=== PATIENT | female | born 1955 | race African-American/Black ===

== ENCOUNTER 2018-05-24 06:19 | Inpatient (IN) | payer MEDICARE, MEDICAID ==
[~2018-05-24] VITALS: Ht 162.6 cm; Wt 63.5 kg
[~2018-05-24 06:19] MED LIST: ALBU6.7H IH; AMLO5TAB88 PO; CLON0.2T PO; HYDR-4009 PO; LACTATED RINGERS 1,000 ML IV SCH; S350 PO
[2018-05-24] MEDS ORDERED: INDOCYANINE GREEN 25 MG VIAL IV ONE (06:38)
[2018-05-24] MEDS ORDERED: SKIN ADHESIVE 0.7 GM EA TOP ONE (06:39)
[2018-05-24] MEDS ORDERED: BUPIVACAINE HCL 0.5% (5MG/ML) 50ML ONE (06:39)
[2018-05-24 07:22] LABS: CLARITY URINE TURBID (CLEAR); COLOR URINE AMBER (YELLOW); KETONES URINE TRACE (NEGATIVE); LEUKOCYTE ESTERASE URINE 3+ (NEGATIVE); NITRITE URINE NEGATIVE (NEGATIVE); OCCULT BLOOD URINE 3+ (NEGATIVE); PH URINE 5.5 (4.5-8.0); PROTEIN URINE 1+ (NEGATIVE); SPECIFIC GRAVITY URINE 1.022 (1.005-1.030); UROBILINOGEN URINE 0.2 E.U./dL (0.2-1.0)
[2018-05-24] MEDS ORDERED: MIDAZOLAM HCL 2 MG/2 ML VIAL ONE (08:16)
[2018-05-24] MEDS ORDERED: PROPOFOL 200MG/20ML VIAL IV ONE (08:16)
[2018-05-24] MEDS ORDERED: FENTANYL CITRATE/PF 50MCG/ML 5ML VIAL ONE (08:16)
[2018-05-24] MEDS ORDERED: ROCURONIUM BROMIDE 10MG/ML VIAL 5ML IV ONE (08:16)
[2018-05-24] MEDS ORDERED: METRONIDAZOLE 500 MG PREMIX 100 ML IV ONE (08:23)
[2018-05-24] MEDS ORDERED: LEVOFLOXACIN 500MG PREMIX 100 ML IV ONE (08:23)
[2018-05-24] MEDS ORDERED: SUCCINYLCHOLINE CHLORIDE 200MG/10ML IV ONE (08:48)
[2018-05-24] MEDS ORDERED: KETOROLAC 30MG/ML VIAL ONE ×2 (08:48→11:17)
[2018-05-24] MEDS ORDERED: BUPIVACAINE HCL/PF 0.5% (5MG/ML) 10ML ONE (08:57)
[2018-05-24] MEDS ORDERED: PHENYLEPHRINE HCL 10 MG/ML 1ML (IV VIAL) IV ONE (09:53)
[2018-05-24] MEDS ORDERED: MEPERIDINE HCL/PF 25MG/ML CPJ IV PRN (11:15)
[2018-05-24] MEDS ORDERED: LEVOFLOXACIN 500MG PREMIX 100 ML IV SCH (11:15)
[2018-05-24] MEDS ORDERED: ONDANSETRON HCL 4MG/2ML INJ IV PRN ×2 (11:15)
[2018-05-24] MEDS ORDERED: HYDROMORPHONE HCL/PF 2MG/ML CPJ IV PRN (11:15)
[2018-05-24] MEDS ORDERED: ACETAMINOPHEN 650MG SUPP PR PRN (11:15)
[2018-05-24] MEDS ORDERED: MORPHINE SULFATE 4 MG/ML CPJ (NOT FOR IM USE) IV PRN (11:15)
[2018-05-24] MEDS ORDERED: FENTANYL CITRATE/PF 50MCG/ML 2ML VIAL IV PRN (11:15)
[2018-05-24] MEDS ORDERED: METOCLOPRAMIDE HCL 10MG/2ML VIAL ONE (11:17)
[2018-05-24] MEDS: MORPHINE SULFATE 4 MG/ML CPJ (NOT FOR IM USE) IV PRN (15:13)
[2018-05-24 16:00] VITALS: BP 88/60
[2018-05-24 16:38] VITALS: BP 113/60
[2018-05-24] MEDS: DEXT 5%/0.45% NACL KCL 20MEQ/L 1,000 ML IV SCH (17:03)
[2018-05-24] MEDS: METRONIDAZOLE 500 MG PREMIX 100 ML IV SCH (17:04)
[2018-05-24 20:00] VITALS: BP 96/56
[2018-05-24 20:13] LABS: HEMATOCRIT 26.9 % (36.0-48.0); HEMOGLOBIN 8.6 g/dL (12.0-16.0)
[2018-05-24] MEDS ORDERED: FAMOTIDINE 20MG/2ML VIAL IV NR (21:00)
[2018-05-24 23:32] LABS: HEMATOCRIT 25.4 % (36.0-48.0); HEMOGLOBIN 8.1 g/dL (12.0-16.0)
[2018-05-25] VITALS: BP 109/67
[2018-05-25] MEDS: MORPHINE SULFATE 4 MG/ML CPJ (NOT FOR IM USE) IV PRN ×4 (00:17→18:18)
[2018-05-25] MEDS: METRONIDAZOLE 500 MG PREMIX 100 ML IV SCH ×2 (01:14→09:29)
[2018-05-25] MEDS: DEXT 5%/0.45% NACL KCL 20MEQ/L 1,000 ML IV SCH ×2 (01:14→12:54)
[2018-05-25 04:00] VITALS: BP 103/67
[2018-05-25 07:16] LABS: CHLORIDE 110 mEq/L (98-107)
[2018-05-25] MEDS ORDERED: SODIUM CHLORIDE 0.9% 1000ML BAG (SEPSIS BOLUS) IV ONE (10:30)
[2018-05-25] MEDS ORDERED: SODIUM CHLORIDE 0.9% 250 ML IV ONE (10:45)
[2018-05-25] MEDS: FAMOTIDINE 20MG/2ML VIAL IV SCH ×2 (10:50→20:53)
[2018-05-25 12:00] VITALS: BP 116/70
[2018-05-25] MEDS: ACETAMINOPHEN 650MG/20.3ML UDC PO PRN (12:30)
[2018-05-25 16:00] VITALS: BP 114/69
[2018-05-25 20:00] VITALS: BP 102/61
[2018-05-26] VITALS: BP 136/77
[2018-05-26] MEDS: DEXT 5%/0.45% NACL KCL 20MEQ/L 1,000 ML IV SCH ×3 (01:30→17:14)
[2018-05-26] MEDS: MORPHINE SULFATE 4 MG/ML CPJ (NOT FOR IM USE) IV PRN ×3 (01:58→17:08)
[2018-05-26] MEDS: ACETAMINOPHEN 650MG/20.3ML UDC PO PRN (03:49)
[2018-05-26 04:00] VITALS: BP 116/69
[2018-05-26] MEDS: FAMOTIDINE 20MG/2ML VIAL IV SCH ×2 (09:43→21:21)
[2018-05-26 16:00] VITALS: BP 125/80
[2018-05-26 20:00] VITALS: BP 108/68
[2018-05-27] VITALS: BP 129/69
[2018-05-27 04:00] VITALS: BP 123/77
[2018-05-27] MEDS: DEXT 5%/0.45% NACL KCL 20MEQ/L 1,000 ML IV SCH ×2 (04:00→14:00)
[2018-05-27 08:00] VITALS: BP 114/69
[2018-05-27] MEDS: FAMOTIDINE 20MG/2ML VIAL IV SCH ×2 (09:38→20:56)
[2018-05-27] MEDS: MORPHINE SULFATE 4 MG/ML CPJ (NOT FOR IM USE) IV PRN ×2 (10:18→20:56)
[2018-05-27 12:00] VITALS: BP 117/79
[2018-05-27 16:00] VITALS: BP 122/77
[2018-05-27 20:00] VITALS: BP 121/79
[2018-05-28] VITALS: BP 109/77
[2018-05-28] MEDS: DEXT 5%/0.45% NACL KCL 20MEQ/L 1,000 ML IV SCH ×3 (00:55→21:03)
[2018-05-28 04:00] VITALS: BP 126/79
[2018-05-28 08:00] VITALS: BP 91/61
[2018-05-28] MEDS: FAMOTIDINE 20MG/2ML VIAL IV SCH ×2 (08:26→21:08)
[2018-05-28] MEDS ORDERED: ONDANSETRON HCL 4MG/2ML INJ ONE (09:53)
[2018-05-28] MEDS ORDERED: METOCLOPRAMIDE HCL 10MG/2ML VIAL ONE (09:53)
[2018-05-28 12:00] VITALS: BP 109/66
[2018-05-28 16:00] VITALS: BP 114/78
[2018-05-28 20:00] VITALS: BP 117/80
[2018-05-28] MEDS: MORPHINE SULFATE 4 MG/ML CPJ (NOT FOR IM USE) IV PRN (21:04)
[2018-05-29] VITALS: BP 114/74
[2018-05-29 04:00] VITALS: BP 125/76
[2018-05-29] MEDS: DEXT 5%/0.45% NACL KCL 20MEQ/L 1,000 ML IV SCH (06:30)
[2018-05-29 08:00] VITALS: BP 116/70
[2018-05-29] MEDS: FAMOTIDINE 20MG/2ML VIAL IV SCH (08:18)
[2018-05-29] MEDS ORDERED: IOHEXOL-300 50 ML BOTTLE IV ONE (09:18)
[2018-05-29 12:00] VITALS: BP 124/70
[2018-05-29] MEDS: ACETAMINOPHEN 650MG/20.3ML UDC PO PRN (15:05)
[2018-05-29 15:28] VITALS: BP 124/70
[2018-05-29 16:00] VITALS: BP 128/88
== END 2018-05-29 15:55 | disposition home health service (06) | DRG 333 ==
LOC: OR 06:19 → 6EST 06:20
PROVIDERS: ADMIT Surgery; ATTEND Surgery
PROC: 8E0W4CZ Robotic Assisted Procedure of Trunk Region, Percutaneous Endoscopic Approach (ICD-10-PCS; principal; 2018-05-24)
PROC: 0DTP0ZZ Resection of Rectum, Open Approach (ICD-10-PCS; 2018-05-24)
DX: K57.92 Diverticulitis of intestine, part unspecified, without perforation or abscess without bleeding (principal); N32.1 Vesicointestinal fistula
CPT/HCPCS: 36415; 71045; 74176; 80048; 85014; 85018; 86850; 86900; 88305; 88307; 97116; 97162; C1893; J0330; J1885; J1956; J2250; J2270; J2370; J2405; J2704; J2765; J3010; J3490; J7040; Q9957; Q9967

== ENCOUNTER 2019-04-11 13:57 | Emergency (ER) | payer MEDICARE, MEDICAID ==
[~2019-04-11] VITALS: Ht 162.6 cm; Wt 66.0 kg
[~2019-04-11 13:57] MED LIST changes: -CLON0.2T PO; -LACTATED RINGERS 1,000 ML IV SCH; -S350 PO
[2019-04-11 14:11] VITALS: BP 107/89
[2019-04-11] MEDS ORDERED: IBUPROFEN 600MG TABLET PO ONE (15:30)
== END 2019-04-11 15:49 | disposition home or self-care (01) ==
LOC: ER 14:09
DX: M54.9 Dorsalgia, unspecified (principal); M79.601 Pain in right arm; I10 Essential (primary) hypertension; M19.90 Unspecified osteoarthritis, unspecified site; V49.9XXA Car occupant (driver) (passenger) injured in unspecified traffic accident, initial encounter; Y93.9 Activity, unspecified; Y92.410 Unspecified street and highway as the place of occurrence of the external cause
CPT/HCPCS: 99282

== ENCOUNTER 2019-09-28 06:11 | Emergency (ER) | payer MEDICARE, MEDICAID ==
[~2019-09-28] VITALS: Ht 162.6 cm; Wt 66.0 kg
[~2019-09-28 06:11] MED LIST changes: -ALBU6.7H IH; +ALBU6.7H11 IH
[2019-09-28 06:20] VITALS: BP 117/96
[2019-09-28] MEDS ORDERED: HYDROCODONE/ACETAMINOPHEN 5/325MG TABLET PO ONE (07:00)
== END 2019-09-28 09:13 | disposition home or self-care (01) ==
LOC: ER 06:11
DX: M25.462 Effusion, left knee (principal); I10 Essential (primary) hypertension; M19.90 Unspecified osteoarthritis, unspecified site; J45.909 Unspecified asthma, uncomplicated
CPT/HCPCS: 29505; 73562; 93971; 99284

== ENCOUNTER 2020-01-05 05:23 | Emergency (ER) | payer MEDICARE, MEDICAID ==
[~2020-01-05] VITALS: Ht 162.6 cm; Wt 67.0 kg
[2020-01-05] MEDS ORDERED: ACETAMINOPHEN 500MG TABLET PO ONE (06:30)
[2020-01-05 07:15] LABS: CHLORIDE 111 mEq/L (98-107)
[2020-01-05 07:28] LABS: BASOPHILS % 0.6 % (0.0-2.0); EOSINOPHILS % 1.3 % (0.0-5.0); HEMATOCRIT. 34.8 % (36.0-48.0); HEMOGLOBIN. 11.5 g/dL (12.0-16.0); LYMPHOCYTES % 26.3 % (20.0-50.0); MEAN CORPUSCULAR HEMOGLOBIN 29.1 pg (28.0-32.0); MEAN CORPUSCULAR VOLUME 88.5 fL (81.0-99.0); MEAN PLATELET VOLUME 6.5 fl (7.4-10.4); MONOCYTES % 8.5 % (2.0-8.0); NEUTROPHILS % 63.3 % (40.0-76.0); PLATELET 360 x1000/uL (130-400); RED BLOOD CELL COUNT 3.93 mill/uL (4.2-5.4); RED CELL DISTRIBUTION WIDTH 13.7 % (11.6-14.6)
[2020-01-05 09:39] VITALS: BP 129/87
[2020-01-05] MEDS ORDERED: IOHEXOL-300 100 ML BOTTLE ONE (15:27)
== END 2020-01-05 09:40 | disposition home or self-care (01) ==
LOC: ER 05:23
DX: R10.84 Generalized abdominal pain (principal); I10 Essential (primary) hypertension; Z79.899 Other long term (current) drug therapy
CPT/HCPCS: 36415; 70450; 73564; 74177; 80053; 85025; 93005; 99285; Q9967

== ENCOUNTER 2020-06-13 14:33 | Emergency (ER) | payer MEDICARE, MEDICAID ==
[~2020-06-13] VITALS: Ht 167.6 cm; Wt 60.0 kg
[2020-06-13] MEDS ORDERED: ONDANSETRON HCL 4MG/2ML INJ IV STA (15:37)
[2020-06-13] MEDS ORDERED: MORPHINE SULFATE 4 MG/ML CPJ (NOT FOR IM USE) IV STA (15:37)
[2020-06-13 16:19] LABS: HEMATOCRIT. 37.3 % (36.0-48.0); HEMOGLOBIN. 12.4 g/dL (12.0-16.0); MEAN CORPUSCULAR HEMOGLOBIN 28.7 pg (28.0-32.0); MEAN CORPUSCULAR VOLUME 86.4 fL (81.0-99.0); MEAN PLATELET VOLUME 6.9 fl (7.4-10.4); PLATELET 400 x1000/uL (130-400); RED BLOOD CELL COUNT 4.32 mill/uL (4.2-5.4); RED CELL DISTRIBUTION WIDTH 13.4 % (11.6-14.6)
[2020-06-13 16:25] LABS: CHLORIDE 103 mEq/L (98-107)
[2020-06-13] MEDS ORDERED: SODIUM CHLORIDE 0.9% 1,000 ML IV ONE ×2 (16:30→19:15)
[2020-06-13] MEDS ORDERED: MAGNESIUM CITRATE 300ML SOLUTION PO ONE (17:00)
[2020-06-13] MEDS ORDERED: POTASSIUM CHLORIDE 20MEQ TABLET SR PO ONE (17:00)
[2020-06-13 17:57] LABS: PLATELET ESTIMATE NORMAL
[2020-06-13] MEDS ORDERED: MORPHINE SULFATE 4 MG/ML CPJ (NOT FOR IM USE) IV ONE (18:00)
[2020-06-13] MEDS ORDERED: LIDOCAINE HCL 1% 20ML VIAL (Pyxis) INJ INFIL ONE (19:00)
[2020-06-13] MEDS ORDERED: HYDROMORPHONE HCL/PF 2MG/ML CPJ IV ONE (19:00)
[2020-06-13 19:36] VITALS: BP 144/98
== END 2020-06-13 20:22 | disposition left against medical advice (07) ==
LOC: ER 14:33
DX: M25.462 Effusion, left knee (principal); K56.41 Fecal impaction; K57.30 Diverticulosis of large intestine without perforation or abscess without bleeding; E87.6 Hypokalemia; I10 Essential (primary) hypertension
CPT/HCPCS: 20610; 36415; 73560; 74176; 80053; 83690; 85025; 87070; 87205; 89050; 89060; 93005; 96361; 96374; 96375; 96376; 99285; J1170; J2270; J2405; J3490; J7030; 49083